=== PATIENT | male | born 1965 | race Caucasian/White ===

== ENCOUNTER 2016-11-30 19:44 | Emergency (ER) | payer BC, OTHER ==
[2016-11-30 19:50] VITALS: BP 165/100
[2016-11-30] MEDS ORDERED: Ondansetron 4 MG/2 ML SDV IVPUSH ONE (19:55)
--- NOTE | 2016-11-30 20:05 | EDM.PDOC ---
ED HPI GENERAL MEDICAL PROBLEM - General Chief Complaint: General Stated Complaint: [facility] Time Seen by Provider: 11/30/16 19:51 Source of Information: Reports: Patient, Family History Limitations: Reports: No Limitations - History of Present Illness INITIAL COMMENTS - FREE TEXT/NARRATIVE: This is a 50-year-old male. He spent the day over at [employer] and had a great lunch and prior to driving home about one hour ago he had ice cream. He was driving past the consent and [place] when he felt weird and the environment began to spin he pulled over to the side of the road and stopped driving. He became diaphoretic and had nausea and vomiting area they drove back to [place] to the ambulance and the aunt wants brings him to the ER. When he arrives his eyes are closed he is nausea and vomiting and he is diaphoretic. He did not have any chest pain during these episodes. He did complain of his neck felt, stiff and sore but no jaw pain. A blood sugar by the ambulance crew showed a glucose of 50. His blood pressure was 170/105. He states that during this time if you would open up his eyes the room and the environment would spin rapidly making him more nauseated. His blood sugar in the ER was 126. He has no history of atherosclerotic heart disease but he has a large family history of it. He denies being short of breath. He's had no headache. He does have tinnitus but this is long-term and there's been no recent increase of his hearing loss or the tinnitus. During this time he was not ambulatory he had no numbness and no decreased function of his extremities. He's had no recent illnesses no colds no cough no congestion. - Related Data Allergies Allergy/AdvReac Type Severity Reaction Status Date / Time No Known Allergies Allergy Verified 11/30/16 19:51 Home Meds: Home Meds Aspirin 81 mg PO DAILY 11/30/16 [History] Lisinopril 10 mg PO DAILY 11/30/16 [History] Meclizine [Antivert] 25 mg PO Q6H PRN #20 tablet 11/30/16 [Rx] Ondansetron [Zofran ODT] 4 mg PO Q6H PRN #20 tab.dis 11/30/16 [Rx] Simvastatin [Zocor] 10 mg PO DAILY 11/30/16 [History] ED ROS GENERAL - Review of Systems Review Of Systems: See Below Constitutional: Reports: Diaphoresis. Denies: Fever, Chills HEENT: Reports: No Symptoms Respiratory: Denies: Shortness of Breath, Wheezing, Cough Cardiovascular: Denies: Chest Pain Endocrine: Reports: No Symptoms GI/Abdominal: Reports: Nausea, Vomiting. Denies: Abdominal Pain : Reports: No Symptoms Musculoskeletal: Reports: Neck Pain Skin: Reports: No Symptoms Neurological: Reports: Dizziness, Difficulty Walking. Denies: Confusion, Headache, Numbness, Paresthesia, Seizure, Trouble Speaking, Change in Speech Psychiatric: Reports: No Symptoms Hematologic/Lymphatic: Reports: No Symptoms ED EXAM, GENERAL - Physical Exam Exam: See Below Exam Limited By: No Limitations General Appearance: Alert, WD/WN, Moderate Distress Eye Exam: Bilateral Eye: Nystagmus (Noted were a little nystagmus when he would open his eyes) Ears: Normal External Exam, Normal Canal, Normal TMs Nose: Normal Inspection Throat/Mouth: Normal Inspection, Normal Lips, Normal Voice, No Airway Compromise Head: Normocephalic Neck: Supple, Non-Tender. No: Carotid Bruit Respiratory/Chest: No Respiratory Distress, Lungs Clear, Normal Breath Sounds Cardiovascular: Regular Rate, Rhythm, No Murmur GI/Abdominal: Soft, Non-Tender. No: Guarding, Rigid, Rebound, Tender Back Exam: Full Range of Motion Extremities: Normal Inspection, Normal Range of Motion, No Pedal Edema Neurological: Alert, Oriented, Normal Cognition, No Motor/Sensory Deficits Psychiatric: Normal Affect, Normal Mood Skin Exam: Diaphoretic EKG INTERPRETATION EKG Date: 11/30/16 Time: 19:44 Rhythm: NSR Rate (beats/min): 85 P-wave: present QRS: normal ST-T: normal QT: normal EKG Interpretation Comments: Normal sinus rhythm, no acute ST or T wave changes, no ischemia noted. Course - Vital Signs Last Recorded V/S: Last Vital Signs Temp 92.7 F L 11/30/16 19:46 Pulse 83 11/30/16 19:46 Resp 18 11/30/16 19:46 BP 165/100 H 11/30/16 19:46 Pulse Ox 96 11/30/16 19:46 - Orders/Labs/Meds Orders: Active Orders 24 hr Category Date Time Status EKG 12 Lead [EKG Documentation Completion] [RC] STAT Care 11/30/16 19:56 Active Chest 2V [CR] Stat Exams 11/30/16 19:53 Taken Labs: Laboratory Tests 11/30/16 11/30/16 Range/Units 19:45 19:45 WBC 9.40 H (4.23-9.07) K/mm3 RBC 5.18 (4.63-6.08) M/mm3 Hgb 16.3 (13.7-17.5) gm/L Hct 47.0 (40.1-51.0) % MCV 90.7 (79.0-92.2) fl MCH 31.5 (25.7-32.2) pg MCHC 34.7 (32.2-35.5) g/dl RDW Std Deviation 42.7 (35.1-43.9) fL Plt Count 301 (163-337) K/mm3 MPV 9.7 (9.4-12.3) fl Neut % (Auto) 45.2 (34.0-67.9) % Lymph % (Auto) 41.6 (21.8-53.1) % [place] % (Auto) 9.7 (5.3-12.2) % Eos % (Auto) 2.4 (0.8-7.0) Baso % (Auto) 1.0 (0.1-1.2) % Neut # (Auto) 4.25 (1.78-5.38) K/mm3 Lymph # (Auto) 3.91 H (1.32-3.57) K/mm3 [place] # (Auto) 0.91 H (0.30-0.82) K/mm3 Eos # (Auto) 0.23 (0.04-0.54) K/mm3 Baso # (Auto) 0.09 H (0.01-0.08) K/mm3 Sodium 143 (136-145) mEq/L Potassium 3.9 (3.5-5.1) mEq/L Chloride 105 (98-107) mEq/L Carbon Dioxide 26 (21-32) mEq/L Anion Gap 15.9 H (5-15) BUN 16 (7-18) mg/dL Creatinine 1.2 (0.7-1.3) mg/dL Est Cr Clr Drug Dosing 79.94 mL/min Estimated GFR (MDRD) > 60 (>60) mL/min BUN/Creatinine Ratio 13.3 L (14-18) Glucose 151 H (74-106) mg/dL Calcium 8.5 (8.5-10.1) mg/dL Total Bilirubin 0.4 (0.2-1.0) mg/dL AST 32 (15-37) U/L ALT 55 (16-63) U/L Alkaline Phosphatase 96 (46-116) U/L Troponin I < 0.017 (0.00-0.056) ng/mL Total Protein 7.6 (6.4-8.2) g/dl Albumin 3.8 (3.4-5.0) g/dl Globulin 3.8 gm/dL Albumin/Globulin Ratio 1.0 (1-2) Meds: Medications Discontinued Medications Generic Name Dose Route Start Last Admin Trade Name Freq PRN Reason Stop Dose Admin Diazepam 2.5 mg 11/30/16 19:52 11/30/16 20:01 Valium IVPUSH 11/30/16 19:53 2.5 mg ONETIME ONE Administration Diazepam 2.5 mg 11/30/16 21:04 11/30/16 21:31 Valium IVPUSH 11/30/16 21:05 2.5 mg ONETIME ONE Administration Ondansetron HCl 4 mg 11/30/16 19:55 11/30/16 19:57 Zofran IVPUSH 11/30/16 19:56 4 mg ONETIME ONE Administration - Radiology Interpretation Free Text/Narrative:: Chest x-ray did not show any acute infiltrates or changes - Re-Assessments/Exams Free Text/Narrative Re-Assessment/Exam: 11/30/16 21:03 Patient is feeling better he's not able to reproduce his dizziness or vertigo by moving his head from side to side quickly. I rechecked she does not have any carotid bruits I don't hear a faint posterior neck as far as bruits as well. He is warm and dry resting comfortably in bed. Does have a feeling of mild ickyness in his stomach but no nausea and no vomiting. 11/30/16 21:42 Spoke to the patient and the family regarding the x-ray results and the lab results. I will be sending him home on some meclizine and some Zofran and he is to rest and sleep as much as possible drink lots of fluids over the next 48 hours and followup with his family doctor on Friday for recheck. He is to return to the ER the symptoms worsen. 11/30/16 21:51 The patient is feeling back to normal and her vertigo seems to have resolved. He does note that when he turns his head he'll get a sense of vertigo but no severe vertigo. Departure - Departure Time of Disposition: 21:50 Disposition: Home, Self-Care 01 Condition: good Clinical Impression: Benign positional vertigo Qualifiers: Laterality: right Qualified Code(s): H81.11 - Benign paroxysmal vertigo, right ear Nausea & vomiting Qualifiers: Vomiting type: unspecified Vomiting Intractability: non-intractable Qualified Code(s): R11.2 - Nausea with vomiting, unspecified - Discharge Information Prescriptions: Meclizine [Antivert] 25 mg PO Q6H PRN #20 tablet PRN Reason: Dizziness Ondansetron [Zofran ODT] 4 mg PO Q6H PRN #20 tab.dis PRN Reason: Nausea Referrals: Samuel Holder MD [Primary Care Provider] - Forms: ED Department Discharge Additional Instructions: Over the next 48 hours take the meclizine fairly faithfully and the Zofran as needed, you need to drink lots of fluids avoid caffeine, rest and sleep as much as possible, but very careful about changes in position of your head because that will cause the dizziness or vertigo, if there's marked worsening of your symptoms any need return to the ER over the weekend, followup with your family doctor next week for recheck - My Orders Last 24 Hours: My Active Orders 11/30/16 19:53 Chest 2V [CR] Stat 11/30/16 19:56 EKG 12 Lead [EKG Documentation Completion] [RC] STAT - Assessment/Plan Last 24 Hours: My Active Orders 11/30/16 19:53 Chest 2V [CR] Stat 11/30/16 19:56 EKG 12 Lead [EKG Documentation Completion] [RC] STAT
--- NOTE | 2016-11-30 20:39 | CT ---
Head CT Technique: Multiple axial sections through the brain were obtained. Intravenous contrast was not utilized. Comparison: No previous intracranial imaging is available. Findings: Ventricles along the basal cisterns and sulci over the convexities are mildly prominent. No abnormal parenchymal densities are seen. No evidence of intracranial hemorrhage. No midline shift or mass effect is seen. Slight basal ganglia calcification is incidentally noted. Visualized mastoid sinuses and middle ear cavities are clear. No acute calvarial abnormality is seen. Impression: 1. Slight generalized atrophy. 2. No acute intracranial abnormality is identified on noncontrast head CT study. Diagnostic code #2
[2016-11-30] MEDS ORDERED: Ondansetron 4 MG Tab.DIS ONE (22:13)
--- NOTE | 2016-12-02 08:03 | CR ---
Chest: Two views of the chest were obtained. Comparison: No previous chest imaging is available. Heart size and mediastinum are within normal limits. Lungs are clear. Bony structures show minimal scoliosis. Impression: 1. Nothing acute is identified on two-view chest x-ray. Diagnostic code #1
== END 2016-11-30 22:13 | disposition home or self-care (01) ==
LOC: JD.ED 19:44
DX: H81.11 Benign paroxysmal vertigo, right ear (principal); R11.2 Nausea with vomiting, unspecified; Z79.82 Long term (current) use of aspirin; Z79.899 Other long term (current) drug therapy
CPT/HCPCS: 36415; 70450; 71020; 80053; 84484; 85025; 93005; 96374; 96375; 96376; 99285; A9270; J2405; J3360; 82962; 99284

== ENCOUNTER 2018-09-26 03:14 | Emergency (ER) | payer OTHER ==
[2018-09-26 03:40] VITALS: BP 157/97
[2018-09-26] MEDS ORDERED: Orphenadrine 100 MG Tab.ER PO STA (03:47)
--- NOTE | 2018-09-26 03:53 | EDM.PDOC ---
ED HPI GENERAL MEDICAL PROBLEM - General Chief Complaint: Chest Pain Stated Complaint: CHEST PAIN Time Seen by Provider: 09/26/18 03:30 Source of Information: Reports: Patient, Family (), RN Notes Reviewed History Limitations: Reports: No Limitations - History of Present Illness INITIAL COMMENTS - FREE TEXT/NARRATIVE: The patient states that he was woken from sleep around 01:00 this morning with sudden onset left chest pain - the patient points with one finger to his 3rd intercostal space, midclavicular line - as well as to his left upper back pain. The pain is crampy in character. It is constant. It is made worse if he is supine, better when walking. No associated nausea, diaphoresis, dyspnea, or sense of impending doom. The patient also reports a tingling sensation felt to the upper portion of his left arm, that has since resolved. The patient reports similar symptoms about 3 weeks ago. He states that he saw his chiropractor, had an adjustment, and the pain resolved. The patient's PCP is Dr. Holder. The patient has an appointment to see Dr. Holder this coming 09/28/2018. Mid-Sternal Chest Pain Score (Numeric/FACES): 6 - Related Data Allergies Allergy/AdvReac Type Severity Reaction Status Date / Time No Known Allergies Allergy Verified 09/26/18 03:33 Home Meds: Home Meds Aspirin 81 mg PO DAILY 11/30/16 [History] Lisinopril 10 mg PO DAILY 11/30/16 [History] Simvastatin [Zocor] 10 mg PO DAILY 11/30/16 [History] Hydrochlorothiazide [Microzide] 12.5 mg PO DAILY 09/26/18 [History] Orphenadrine [Norflex] 1 tab PO Q12H PRN #10 tab.er 09/26/18 [Rx] Past Medical History Cardiovascular History: Reports: High Cholesterol, Hypertension Gastrointestinal History: Reports: Colon Polyp Musculoskeletal History: Reports: Fracture (left cheeck and mandible, left ankle ) Endocrine/Metabolic History: Reports: Obesity/BMI 30+ Hematologic History: Reports: Hemochromatosis Social & Family History - Tobacco Use Smoking Status *Q: Never Smoker - Caffeine Use Caffeine Use: Reports: None - Alcohol Use Alcohol Use History: Yes Alcohol Use Frequency: Socially - Recreational Drug Use Recreational Drug Use: No - Living Situation & Occupation Living situation: Reports: , with Spouse Occupation: Employed ([employer]) ED ROS GENERAL - Review of Systems Review Of Systems: ROS reveals no pertinent complaints other than HPI. ED EXAM, GENERAL - Physical Exam Exam: See Below Exam Limited By: No Limitations General Appearance: Alert, WD/WN, No Apparent Distress Eye Exam: Bilateral Eye: EOMI, Normal Inspection Ears: Normal External Exam, Hearing Grossly Normal Nose: Normal Inspection Throat/Mouth: Normal Inspection, Normal Lips, Normal Voice, No Airway Compromise Head: Atraumatic, Normocephalic Neck: Normal Inspection, Full Range of Motion Respiratory/Chest: No Respiratory Distress, Lungs Clear, Normal Breath Sounds, No Accessory Muscle Use, Other (Reproducible tenderness to palpation of the 3rd intercostal space, midclavicular line. Nontender elsewhere.) Cardiovascular: Normal Peripheral Pulses, Regular Rate, Rhythm, No Edema, No Gallop, No JVD, No Murmur, No Rub Peripheral Pulses: 4+: Radial (L), Radial (R) GI/Abdominal: Normal Bowel Sounds, Soft, Non-Tender, No Organomegaly, No Distention, No Abnormal Bruit, No Mass, Other (Obese) (Male) Exam: Deferred Rectal (Males) Exam: Deferred Back Exam: Full Range of Motion, Muscle Spasm (Reproducible tenderness to palpation of the left parascapular muscle, just medial to the mid-scapula) Extremities: Normal Inspection, Normal Range of Motion, No Pedal Edema, Normal Capillary Refill Neurological: Alert, Oriented, Normal Cognition, No Motor/Sensory Deficits Psychiatric: Normal Affect Skin Exam: Warm, Dry, Intact, Normal Color, No Rash EKG INTERPRETATION EKG Date: 09/26/18 Time: 03:25 Rhythm: NSR Rate (Beats/Min): 70 [place]: Normal P-Wave: Present (1 AVB) QRS: Normal (Late transition. RVH.) ST-T: Normal QT: Normal Comparison: No Change (11/30/2016) Course - Vital Signs Last Recorded V/S: Last Vital Signs Temp 36.8 C 09/26/18 03:35 Pulse 70 09/26/18 03:35 Resp 18 09/26/18 03:35 BP 157/97 H 09/26/18 03:35 Pulse Ox 100 09/26/18 03:35 - Orders/Labs/Meds Orders: Active Orders 24 hr Category Date Time Status EKG Documentation Completion [RC] STAT Care 09/26/18 03:37 Active - Re-Assessments/Exams Free Text/Narrative Re-Assessment/Exam: 09/26/18 03:48 There is no question but that the patient's left chest and left parascapular pain is musculoskeletal in etiology. I will prescribe Norflex. The patient states that he has his own ibuprofen. He may safely be discharged home with no further workup. Departure - Departure Time of Disposition: 03:48 Disposition: Home, Self-Care 01 Condition: Good Clinical Impression: Muscular chest pain, Muscle strain of left upper back - Discharge Information *PRESCRIPTION DRUG MONITORING PROGRAM REVIEWED*: Not Applicable *COPY OF PRESCRIPTION DRUG MONITORING REPORT IN PATIENT AYAH: Not Applicable Referrals: Samuel Holder MD [Primary Care Provider] - Additional Instructions: You were seen in the emergency room for sudden onset left chest and left scapular pain. Workup in the ER included an ECG, which was essentially normal. Based on your history, physical examination, and ECG, your chest pain and left parascapular pain is musculoskeletal in etiology. You have been started on the muscle relaxant Norflex. A prescription for Norflex has been sent to the [facility], located just south and across the [address] from [facility]. Take one tablet of Norflex every 12 hours, starting this evening, 09/26/2018, as prescribed. In addition to Norflex, you may also take [id number] ibuprofen, 2-3 tablets (400-600 mg) every 8 hours, with food, as needed for discomfort. Follow-up with your PCP, Dr. Holder, at your previously scheduled appointment this coming 09/28/2018. If any other problems, please do not hesitate to return to the ER. - My Orders Last 24 Hours: My Active Orders 09/26/18 03:37 EKG Documentation Completion [RC] STAT - Assessment/Plan Last 24 Hours: My Active Orders 09/26/18 03:37 EKG Documentation Completion [RC] STAT
== END 2018-09-26 04:15 | disposition home or self-care (01) ==
LOC: JD.ED 03:14
DX: S29.012A Strain of muscle and tendon of back wall of thorax, initial encounter (principal); I10 Essential (primary) hypertension; E78.00 Pure hypercholesterolemia, unspecified; Z79.82 Long term (current) use of aspirin; Z79.899 Other long term (current) drug therapy; X58.XXXA Exposure to other specified factors, initial encounter
CPT/HCPCS: 93005; 99284; A9270; 93010

== ENCOUNTER 2020-01-20 09:30 | Day surgery (SDC) | payer OTHER ==
[~2020-01-20 09:30] MED LIST: EPINEPHrine 1 MG/ML 30 ML MDV IRR SCH; Lactated Ringers 1,000 ML IV SCH; Lidocaine 1%/Sod Bicarbonate in NS 8.4% 1 ML Syringe IDERM PRN; Sodium Chloride 0.9% 10 ML Syringe FLUSH PRN
[2020-01-20] MEDS ORDERED: Bupivacaine 0.25% 10 ML SDV ONE ×2 (10:21→11:43)
[2020-01-20] MEDS ORDERED: Midazolam 1 MG/ML 2 ML SDV ONE ×2 (10:44→11:18)
[2020-01-20] MEDS ORDERED: Dexamethasone 4 MG/ML 5 ML MDV ONE ×2 (10:44→12:13)
[2020-01-20] MEDS ORDERED: Ondansetron 4 MG/2 ML SDV ONE ×2 (10:44→11:17)
[2020-01-20] MEDS ORDERED: Ketorolac 30 MG/ML SDV ONE (10:44)
[2020-01-20] MEDS ORDERED: Lactated Ringers 1,000 ML ONE (10:44)
[2020-01-20] MEDS ORDERED: ceFAZolin 1 GM Vial ONE ×2 (10:44→11:45)
[2020-01-20] MEDS ORDERED: Propofol 200 MG/20 ML SDV ONE ×3 (10:44→12:08)
[2020-01-20] MEDS ORDERED: Lidocaine 1% 0 ML ONE (10:44)
[2020-01-20] MEDS ORDERED: fentaNYL 100 MCG/2 ML SDV ONE (10:45)
--- NOTE | 2020-01-20 11:08 | PCM.PREANE ---
Preanesthetic Assessment - Procedure Proposed Procedure: Right Knee video arthroscopy - Anesthesia/Transfusion/Family Hx Anesthesia History: Prior Anesthesia Without Reaction Family History of Anesthesia Reaction: No Transfusion History: No Prior Transfusion(s) - Review of Systems General: No Symptoms Pulmonary: No Symptoms Cardiovascular: No Symptoms Gastrointestinal: No Symptoms Neurological: No Symptoms, Gait Disturbance (with knee injury) Other: Reports: None - Physical Assessment NPO Status Date: 01/20/20 NPO Status Time: 20:00 Vital Signs: Last Vital Signs Temp 36.3 C 01/20/20 10:20 Pulse 70 01/20/20 10:20 Resp 16 01/20/20 10:20 BP 136/93 H 01/20/20 10:20 Pulse Ox 96 01/20/20 10:20 Height: 1.83 m Weight: 117.027 kg ASA Class: 2 Mental Status: Alert & Oriented x3 Airway Class: Mallampati = 2 Dentition: Reports: [place](s), Caries Thyro-Mental Finger Breadths: 2 Mouth Opening Finger Breadths: 3 ROM/Head Extension: Full Lungs: Clear to Auscultation, Normal Respiratory Effort Cardiovascular: Regular Rate, Regular Rhythm - Lab Values: Laboratory Last Values COVID-19 PCR Not detected (NOT DETECT) 01/17/20 09:15 MRSA (PCR) Negative 01/14/20 12:00 - Imaging/EKG Impressions: EKG left atrial abnormality SR nonspecific inferior T wave - Allergies Allergies/Adverse Reactions: Allergies Allergy/AdvReac Type Severity Reaction Status Date / Time No Known Allergies Allergy Verified 01/20/20 10:18 - Blood Blood Available: No Product(s) Available: None - Anesthesia Plan Pre-Op Medication Ordered: None - Acknowledgements Anesthesia Type Planned: General Anesthesia Pt an Appropriate Candidate for the Planned Anesthesia: Yes Alternatives and Risks of Anesthesia Discussed w Pt/Guardian: Yes Pt/Guardian Understands and Agrees with Anesthesia Plan: Yes PreAnesthesia Questionnaire - Past Health History Medical/Surgical History: Denies Medical/Surgical History HEENT History: Reports: Otitis Media, Other (See Below) Other HEENT History: IMPACTED CERUMEN, JAW FRACTURE Cardiovascular History: Reports: High Cholesterol, Hypertension Respiratory History: Reports: None Gastrointestinal History: Reports: Colon Polyp Genitourinary History: Reports: None [employer]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 Musculoskeletal History: Reports: Fracture Neurological History: Reports: None Psychiatric History: Reports: None Endocrine/Metabolic History: Reports: None Hematologic History: Reports: Hemochromatosis, Other (See Below) Other Hematologic History: HEMOCHROMOTISIS, DISORDER OF IRON METABOLISM Immunologic History: Reports: None Oncologic (Cancer) History: Reports: None Dermatologic History: Reports: Other (See Below) Other Dermatologic History: RASH - Infectious Disease History Infectious Disease History: Reports: None - Past Surgical History Head Surgeries/Procedures: Reports: None HEENT Surgical History: Reports: Oral Surgery, Tonsillectomy, Other (See Below) Other HEENT Surgeries/Procedures: FACE AND JAW SURGERY Cardiovascular Surgical History: Reports: None Respiratory Surgical History: Reports: None GI Surgical History: Reports: Colonoscopy Female Surgical History: Reports: None Male Surgical History: Reports: None Endocrine Surgical History: Reports: None Neurological Surgical History: Reports: Other (See Below) Other Neurological Surgeries/Procedures: BACK SURGERY Musculoskeletal Surgical History: Reports: ORIF Other Musculoskeletal Surgeries/Procedures:: LEFT ANKLE ORIF WITH LATER HARDWARE REMOVAL Oncologic Surgical History: Reports: None Dermatological Surgical History: Reports: None - SUBSTANCE USE Smoking Status *Q: Never Smoker Tobacco Use Within Last Twelve Months: No Second Hand Smoke Exposure: No Days Per Week of Alcohol Use: 1 Number of Drinks Per Day: 1 Total Drinks Per Week: 1 Recreational Drug Use History: No - HOME MEDS Home Medications: Home Meds Lisinopril 10 mg PO DAILY 11/30/16 [History] hydroCHLOROthiazide [Microzide] 12.5 mg PO DAILY 09/26/18 [History] Simvastatin 20 mg PO DAILY 01/19/20 [History] Trolamine Salicylate/Aloe Vera [Aspercreme 10%] 1 dose TOP BID 01/19/20 [History] Acetaminophen/HYDROcodone [[place] 325-5 MG] 1 - 2 tab PO Q6H PRN #20 tablet 01/20/20 [Rx] Rivaroxaban [Xarelto] 10 mg PO DAILY #30 tab 01/20/20 [Rx] - CURRENT (IN HOUSE) MEDS Current Meds: Current Medications Epinephrine HCl (Adrenalin) 3 mg IRR ONETIME KATIE Stop: 01/20/20 13:00 Lactated Ringer's (Ringers, Lactated) 1,000 mls @ 125 mls/hr IV ASDIRECTED KATIE Stop: 01/20/20 23:00 Last Admin: 01/20/20 10:17 Dose: 125 mls/hr Documented by: Lidocaine/Sodium Bicarbonate (Buffered Lidocaine 1% In Ns 8.4%) 0.25 ml IDERM ONETIME PRN PRN Reason: Prior to IV Start Stop: 01/20/20 23:00 Last Admin: 01/20/20 10:17 Dose: 0.25 ml Documented by: Sodium Chloride (Saline Flush) 10 ml FLUSH ASDIRECTED PRN PRN Reason: Keep Vein Open Stop: 01/20/20 23:00 Discontinued Medications Bupivacaine HCl (Sensorcaine-Mpf 0.25%) Confirm Administered Dose 20 ml .ROUTE .STK-MED ONE Stop: 01/20/20 10:22 Cefazolin Sodium (Ancef) Confirm Administered Dose 2 gm .ROUTE .STK-MED ONE Stop: 01/20/20 10:45 Dexamethasone (Dexamethasone) Confirm Administered Dose 20 mg .ROUTE .STK-MED ONE Stop: 01/20/20 10:45 Fentanyl (Sublimaze) Confirm Administered Dose 100 mcg .ROUTE .STK-MED ONE Stop: 01/20/20 10:46 Lactated Ringer's (Ringers, Lactated) Confirm Administered Dose 1,000 mls @ as directed .ROUTE .STK-MED ONE Stop: 01/20/20 10:45 Lidocaine HCl (Xylocaine-Mpf 1%) Confirm Administered Dose 4 mls @ as directed .ROUTE .STK-MED ONE Stop: 01/20/20 10:45 Ketorolac Tromethamine (Toradol) Confirm Administered Dose 30 mg .ROUTE .STK-MED ONE Stop: 01/20/20 10:45 Midazolam HCl (Versed 1 Mg/Ml) Confirm Administered Dose 2 mg .ROUTE .STK-MED ONE Stop: 01/20/20 10:45 Ondansetron HCl (Zofran) Confirm Administered Dose 4 mg .ROUTE .STK-MED ONE Stop: 01/20/20 10:45 Propofol (Diprivan 20 Ml) Confirm Administered Dose 400 mg .ROUTE .STK-MED ONE Stop: 01/20/20 10:45
[2020-01-20] MEDS ORDERED: Lidocaine 1% 4 ML ONE (11:18)
[2020-01-20] MEDS ORDERED: fentaNYL 250 MCG/5 ML SDV ONE (11:18)
[2020-01-20] MEDS ORDERED: Ondansetron 4 MG/2 ML SDV IVPUSH PRN (12:34)
[2020-01-20] MEDS ORDERED: fentaNYL 100 MCG/2 ML SDV IVPUSH PRN (12:34)
[2020-01-20] MEDS ORDERED: HYDROmorphone 0.5 MG/0.5 ML Syringe IVPUSH PRN (12:34)
--- NOTE | 2020-01-20 12:36 | PCM.POSTAN ---
POST ANESTHESIA ASSESSMENT - MENTAL STATUS Mental Status: Alert, Oriented - VITAL SIGNS Vital Signs: Last Vital Signs Temp 36.3 C 01/20/20 10:20 Pulse 70 01/20/20 10:20 Resp 16 01/20/20 10:20 BP 136/93 H 01/20/20 10:20 Pulse Ox 96 01/20/20 10:20 1226 88 10 97% 98.1F - RESPIRATORY Respiratory Status: Respiratory Rate WNL, Airway Patent, O2 Saturation Stable, Supplemental Oxygen - CARDIOVASCULAR CV Status: Pulse Rate WNL, Elevated Blood Pressure - GASTROINTESTINAL GI Status: No Symptoms - PAIN Pain Score: 0 - POST OP HYDRATION Hydration Status: Adequate & Stable
[2020-01-20] MEDS ORDERED: Labetalol 100 MG/20 ML MDV ONE (12:41)
[2020-01-20] MEDS: Labetalol 100 MG/20 ML MDV IVPUSH PRN ×2 (13:17→13:31)
[2020-01-20] MEDS ORDERED: hydrALAZINE 20 MG/ML SDV IVPUSH ONE (13:34)
--- NOTE | 2020-01-20 13:41 | PCM.POSTAN ---
POST ANESTHESIA ASSESSMENT - MENTAL STATUS Mental Status: Alert, Oriented - VITAL SIGNS Vital Signs: Last Vital Signs Temp 36.3 C 01/20/20 10:20 Pulse 70 01/20/20 10:20 Resp 12 01/20/20 13:30 BP 143/112 H 01/20/20 13:30 Pulse Ox 96 01/20/20 13:37 - RESPIRATORY Respiratory Status: Respiratory Rate WNL, Airway Patent, O2 Saturation Stable, Supplemental Oxygen - CARDIOVASCULAR CV Status: Pulse Rate WNL, Elevated Blood Pressure - GASTROINTESTINAL GI Status: No Symptoms - POST OP HYDRATION Hydration Status: Adequate & Stable
--- NOTE | 2020-01-20 13:43 | PCM48HPAN ---
Post Anesthesia Note - EVALUATION WITHIN 48HRS OF ANESTHETIC Vital Signs in Normal Range: Yes Patient Participated in Evaluation: Yes Respiratory Function Stable: Yes Airway Patent: Yes Cardiovascular Function Stable: Yes Hydration Status Stable: Yes Pain Control Satisfactory: Yes Nausea and Vomiting Control Satisfactory: Yes Mental Status Recovered: Yes Vital Signs: Last Vital Signs Temp 36.3 C 01/20/20 10:20 Pulse 69 01/20/20 10:20 Resp 12 01/20/20 13:30 BP 149/96 H 01/20/20 13:30 Pulse Ox 96 01/20/20 13:37
[2020-01-20 14:32] VITALS: BP 144/103; PULSE 64
--- NOTE | 2020-01-26 15:47 | PCM.OPNOTE ---
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
--- NOTE | 2020-01-26 16:28 | OR ---
DATE OF OPERATION: 01/20/2020 SURGEON: Curtis Godoy MD OPERATION PERFORMED: Right knee video arthroscopy with partial lateral and medial meniscectomy. PREOPERATIVE DIAGNOSIS: Right knee medial meniscus tear. POSTOPERATIVE DIAGNOSIS: Right knee medial and lateral meniscus tear with chondromalacia of the lateral compartment. ANESTHESIA: General LMA with local. ANESTHESIA PROVIDER: Luciana Gannon. SHIPPING TRACK SUPERVISOR: Destiny Sanchez PA-C ESTIMATED BLOOD LOSS: Less than 5 mL. COMPLICATIONS: None. CONDITION: Stable. DESCRIPTION OF PROCEDURE: The patient was identified in the preoperative holding area. Proper site was marked and identified by the surgeon. The patient was taken back to the operating theater, where after adequate anesthesia, the patient's left lower extremity was placed in a well-leg ahumada and right lower extremity had a nonsterile tourniquet applied. It was then placed in a C-clamp ahumada. Foot of the bed was then lowered. Right lower extremity was then sterilely prepped and draped in the usual sterile fashion. OR-wide time-out was performed. The patient received 2 g of IV Ancef. Right lower extremity was exsanguinated. Tourniquet was insufflated to 250 mmHg. Standard anterolateral portal incision was made. Scope trocar was introduced. The patient had grade 1/2 chondromalacia of patella. He had minor amount of synovial overgrowth. Attention was turned to the medial compartment. Anteromedial portal was made with the aid of a spinal needle and partial medial meniscectomy was performed of the posterior third, roughly only 10% to 20% of the posterior horn of the medial meniscus back to a stable rim. The patient had minimal grade 1 chondromalacia of the medial compartment. ACL appeared to be chronically stretched on the notch. Lateral compartment showed significant chondromalacia changes of grade 2/3 throughout with degenerative tear of the lateral meniscus. Partial lateral meniscectomy was then performed back to a stable rim, but it was roughly 40% to 50% of the lateral meniscus and all that was degenerative. Attention was then turned to the gutter, making sure there were no loose foreign bodies. Excess saline was drained from the knee. 3-0 nylon suture was used for closure of the skin. The patient had a sterile soft dressing and sent to PACU in stable condition. MMODAL /[id number]
== END 2020-01-20 14:29 | disposition home or self-care (01) ==
LOC: JD.SDS 09:30
PROVIDERS: ATTEND Orthopaedic Surgery
DX: M23.300 Other meniscus derangements, unspecified lateral meniscus, right knee (principal); M23.321 Other meniscus derangements, posterior horn of medial meniscus, right knee; M94.261 Chondromalacia, right knee; M25.861 Other specified joint disorders, right knee; E78.2 Mixed hyperlipidemia; E78.00 Pure hypercholesterolemia, unspecified; I10 Essential (primary) hypertension; Z11.59 Encounter for screening for other viral diseases; Z79.899 Other long term (current) drug therapy
CPT/HCPCS: 29880; 87635; 87641; J0171; J0360; J0690; J1100; J1885; J2001; J2250; J2704; J3010; J3490; J7120; 01400; J2405; U0002

== ENCOUNTER 2020-04-15 08:30 | Emergency (ER) | payer OTHER ==
--- NOTE | 2020-04-15 09:43 | EDM.PDOC ---
ED HPI GENERAL MEDICAL PROBLEM - General Chief Complaint: Respiratory Problem Stated Complaint: COVID + DIFFICULTY BREATHING Time Seen by Provider: 04/15/20 08:52 Source of Information: Reports: Patient, RN Notes Reviewed - History of Present Illness INITIAL COMMENTS - FREE TEXT/NARRATIVE: 54 yr old male with onset of fever, chills, Mendieta, Myalgias about a week ago. He started coughing yesterday and continue to have cough and feel quite rotton today. Cough is dry, non productive. Hx Htn. Headache Pain Score (Numeric/FACES): 6 - Related Data Allergies Allergy/AdvReac Type Severity Reaction Status Date / Time No Known Allergies Allergy Verified 04/15/20 08:41 Home Meds: Home Meds Lisinopril 10 mg PO DAILY 11/30/16 [History] hydroCHLOROthiazide [Microzide] 12.5 mg PO DAILY 09/26/18 [History] Simvastatin 20 mg PO DAILY 01/19/20 [History] Trolamine Salicylate/Aloe Vera [Aspercreme 10%] 1 dose TOP BID 01/19/20 [History] Acetaminophen/HYDROcodone [[place]oure 325-5 MG] 1 - 2 tab PO Q6H PRN #20 tablet 01/20/20 [Rx] Rivaroxaban [Xarelto] 10 mg PO DAILY #30 tab 01/20/20 [Rx] Hydrocodone/Acetaminophen [[place] 5-325 Tablet] 1 each PO Q6HR PRN #20 tablet 04/15/20 [Rx] Past Medical History - Past Health History Medical/Surgical History: Denies Medical/Surgical History HEENT History: Reports: Otitis Media, Other (See Below) Other HEENT History: IMPACTED CERUMEN, JAW FRACTURE Cardiovascular History: Reports: High Cholesterol, Hypertension Respiratory History: Reports: None Gastrointestinal History: Reports: Colon Polyp Genitourinary History: Reports: None 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 Musculoskeletal History: Reports: Fracture Neurological History: Reports: Vertigo Psychiatric History: Reports: None Endocrine/Metabolic History: Reports: Obesity/BMI 30+ Hematologic History: Reports: Hemochromatosis Other Hematologic History: HEMOCHROMOTISIS, DISORDER OF IRON METABOLISM Immunologic History: Reports: None Oncologic (Cancer) History: Reports: None Dermatologic History: Reports: Other (See Below) Other Dermatologic History: RASH - Infectious Disease History Infectious Disease History: Reports: None - Past Surgical History Head Surgeries/Procedures: Reports: None HEENT Surgical History: Reports: Oral Surgery, Tonsillectomy, Other (See Below) Other HEENT Surgeries/Procedures: FACE AND JAW SURGERY Cardiovascular Surgical History: Reports: None Respiratory Surgical History: Reports: None GI Surgical History: Reports: Colonoscopy Male Surgical History: Reports: None Musculoskeletal Surgical History: Reports: ORIF Other Musculoskeletal Surgeries/Procedures:: LEFT ANKLE ORIF WITH LATER HARDWARE REMOVAL Oncologic Surgical History: Reports: None Dermatological Surgical History: Reports: None Social & Family History - Tobacco Use Tobacco Use Status *Q: Never Tobacco User Second Hand Smoke Exposure: No - Caffeine Use Caffeine Use: Reports: None - Recreational Drug Use Recreational Drug Use: No - Living Situation & Occupation Living situation: Reports: , with Spouse Occupation: Employed ([employer]) ED ROS GENERAL - Review of Systems Review Of Systems: See Below Constitutional: Reports: Fever, Chills. Denies: Diaphoresis HEENT: Reports: Rhinitis. Denies: Throat Pain Respiratory: Reports: Cough. Denies: Shortness of Breath, Sputum Cardiovascular: Denies: Chest Pain GI/Abdominal: Denies: Abdominal Pain, Vomiting Musculoskeletal: Reports: Other (Generalized achiness) Skin: Denies: Rash Neurological: Reports: Headache. Denies: Trouble Speaking, Difficulty Walking ED EXAM, GENERAL - Physical Exam Exam: See Below General Appearance: Alert, Mild Distress Head: Atraumatic Neck: Supple Respiratory/Chest: No Respiratory Distress Extremities: Normal Inspection Neurological: Alert, Oriented, No Motor/Sensory Deficits Skin Exam: Warm, Dry, Normal Color Course - Vital Signs Last Recorded V/S: Last Vital Signs Temp 98.2 F 04/15/20 08:39 Pulse 100 04/15/20 10:06 Resp 18 04/15/20 10:06 BP 134/89 04/15/20 10:06 Pulse Ox 93 L 04/15/20 10:06 - Orders/Labs/Meds Orders: Active Orders 24 hr Category Date Time Status Chest 1V Frontal [CR] Stat Exams 04/15/20 08:52 Taken CORONAVIRUS COVID-19 PCR PHL Stat Lab 04/15/20 10:05 Ordered - Re-Assessments/Exams Free Text/Narrative Re-Assessment/Exam: 04/15/20 10:24 CXR shows very slight peripheral ground glass opacity L lung suggestive for mild covid pneumonia. His sats are running in the mid 90's. afebrile at time of discharge. Strong return precautions given oral and written. Departure - Departure Time of Disposition: 09:38 Disposition: Home, Self-Care 01 Condition: Fair Clinical Impression: Suspected COVID-19 virus infection, Pneumonia due to COVID-19 virus - Discharge Information Prescriptions: Hydrocodone/Acetaminophen [Lamoure 5-325 Tablet] 1 each PO Q6HR PRN #20 tablet PRN Reason: Pain Instructions: COVID-19 Frequently Asked Questions, Prevent the Spread of COVID- 19 if You Are Sick - [facility] Referrals: Samuel Holder MD [Primary Care Provider] - Forms: ED Department Discharge Additional Instructions: Your symptoms are strongly suggestive and compatable for covid illness. Continue to isolate. The results of the covid screen will be called to you when available, usually 2 to 3 days. Drink plenty of fluids to maintain hydration. Tylenol q 6 hr for mild to moderate discomfort. Hydrocodone for severe Mendieta or other discomfort. Prescription has been sent to [facility]. Do not take tylenol and hydrocodone at the same time. Your CXR today does show very mild pneuonia L lung. If it gets to where it is becomes very difficult to breathe like an asthma attack return to ED and also otherwise as needed. Sepsis Event Note (ED) - Evaluation Sepsis Screening Result: No Definite Risk - Focused Exam Vital Signs: Vital Signs Temp Pulse Resp BP Pulse Ox 04/15/20 10:06 100 18 134/89 93 L 04/15/20 08:39 98.2 F 106 H 23 H 137/91 H 95 - My Orders Last 24 Hours: My Active Orders 04/15/20 08:52 Chest 1V Frontal [CR] Stat 04/15/20 10:05 CORONAVIRUS COVID-19 PCR PHL Stat - Assessment/Plan Last 24 Hours: My Active Orders 04/15/20 08:52 Chest 1V Frontal [CR] Stat 04/15/20 10:05 CORONAVIRUS COVID-19 PCR PHL Stat
[2020-04-15 10:08] VITALS: BP 134/89; PULSE 100
== END 2020-04-15 09:50 | disposition home or self-care (01) ==
LOC: JD.ED 08:30
DX: U07.1 COVID-19 (principal); J12.89 Other viral pneumonia; E78.00 Pure hypercholesterolemia, unspecified; I10 Essential (primary) hypertension; E66.9 Obesity, unspecified; Z79.899 Other long term (current) drug therapy; Z68.35 Body mass index [BMI] 35.0-35.9, adult; Z90.89 Acquired absence of other organs
CPT/HCPCS: 71045; 99283; 99284-25; U0002

== ENCOUNTER 2020-04-17 13:34 | Emergency (ER) | payer OTHER ==
[2020-04-17 14:00] VITALS: BP 138/98; PULSE 86
--- NOTE | 2020-04-17 14:14 | EDM.PDOC ---
ED HPI GENERAL MEDICAL PROBLEM - General Chief Complaint: Respiratory Problem Stated Complaint: COVID + DIFFICULTY BREATHING Time Seen by Provider: 04/17/20 14:04 - History of Present Illness INITIAL COMMENTS - FREE TEXT/NARRATIVE: 54-year-old male presents the emergency room with known Covid. The patient has been symptomatic for the last 9 days.. His headache is getting better his body aches are getting better he has some persistent chest tightness. This is not getting better. The patient was seen by his regular physician Dr. Holder prior to coming in. The patient has a home pulse ox that is measured 82 to 88% at times. At other times he is into the 90s. He was not hypoxic in the clinic. He had a chest x-ray that looked like bilateral pneumonia most consistent with Covid. His regular physician started him on dexamethasone 6 mg daily for 10 days cefuroxime 500 mg twice a day and a Z-Drew. [place] and was heading home when a family member recommended he go back in because his O2 saturation was too low. Generalized Pain Score (Numeric/FACES): 4 - Related Data Allergies Allergy/AdvReac Type Severity Reaction Status Date / Time No Known Allergies Allergy Verified 04/17/20 14:05 Home Meds: Home Meds Lisinopril 10 mg PO DAILY 11/30/16 [History] hydroCHLOROthiazide [Microzide] 12.5 mg PO DAILY 09/26/18 [History] Simvastatin 20 mg PO DAILY 01/19/20 [History] Trolamine Salicylate/Aloe Vera [Aspercreme 10%] 1 dose TOP BID 01/19/20 [History] Rivaroxaban [Xarelto] 10 mg PO DAILY #30 tab 01/20/20 [Rx] Hydrocodone/Acetaminophen [[place] 5-325 Tablet] 1 each PO Q6HR PRN #20 tablet 04/15/20 [Rx] Past Medical History - Past Health History Medical/Surgical History: Denies Medical/Surgical History HEENT History: Reports: Otitis Media, Other (See Below) Other HEENT History: IMPACTED CERUMEN, JAW FRACTURE Cardiovascular History: Reports: High Cholesterol, Hypertension Respiratory History: Reports: None Gastrointestinal History: Reports: Colon Polyp Genitourinary History: Reports: None 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 Musculoskeletal History: Reports: Fracture Neurological History: Reports: Vertigo Psychiatric History: Reports: None Endocrine/Metabolic History: Reports: Obesity/BMI 30+ Hematologic History: Reports: Hemochromatosis Other Hematologic History: HEMOCHROMOTISIS, DISORDER OF IRON METABOLISM Immunologic History: Reports: None Oncologic (Cancer) History: Reports: None Dermatologic History: Reports: Other (See Below) Other Dermatologic History: RASH - Infectious Disease History Infectious Disease History: Reports: None - Past Surgical History Head Surgeries/Procedures: Reports: None HEENT Surgical History: Reports: Oral Surgery, Tonsillectomy, Other (See Below) Other HEENT Surgeries/Procedures: FACE AND JAW SURGERY Cardiovascular Surgical History: Reports: None Respiratory Surgical History: Reports: None GI Surgical History: Reports: Colonoscopy Male Surgical History: Reports: None Musculoskeletal Surgical History: Reports: ORIF Other Musculoskeletal Surgeries/Procedures:: LEFT ANKLE ORIF WITH LATER HARDWARE REMOVAL Oncologic Surgical History: Reports: None Dermatological Surgical History: Reports: None Social & Family History - Caffeine Use Caffeine Use: Reports: None - Living Situation & Occupation Living situation: Reports: , with Spouse Occupation: Employed ([employer]) ED ROS GENERAL - Review of Systems Review Of Systems: See Below Constitutional: Reports: No Symptoms HEENT: Reports: Rhinitis, Other (Sore throat and congestion much better) Respiratory: Reports: Cough, Other (He has some chest tightness that is not improving). Denies: Shortness of Breath, Sputum Cardiovascular: Reports: No Symptoms Endocrine: Reports: No Symptoms GI/Abdominal: Reports: No Symptoms : Reports: No Symptoms Musculoskeletal: Reports: No Symptoms Skin: Reports: No Symptoms Neurological: Reports: No Symptoms ED EXAM, GENERAL - Physical Exam Exam: See Below Exam Limited By: No Limitations General Appearance: Alert, No Apparent Distress, Other (He has an obvious cough. The patient was able to get his home O2 monitor we compared it with ours where he consistently reads 5% less than ours sometimes more.) Eye Exam: Bilateral Eye: Normal Inspection Ears: Normal External Exam, Normal Canal, Hearing Grossly Normal, Normal TMs Nose: Normal Inspection, Normal Mucosa, No Blood Throat/Mouth: Normal Inspection, Normal Lips, Normal Teeth, Normal Gums, Normal Oropharynx, Normal Voice, No Airway Compromise Head: Atraumatic, Normocephalic Neck: Normal Inspection, Supple, Non-Tender, Full Range of Motion. No: Lymphadenopathy (L), Lymphadenopathy (R) Respiratory/Chest: No Respiratory Distress, Lungs Clear, Normal Breath Sounds Cardiovascular: Regular Rate, Rhythm, No Edema, No Murmur GI/Abdominal: Normal Bowel Sounds, Soft, Non-Tender Course - Vital Signs Last Recorded V/S: Last Vital Signs Temp 36.8 C 04/17/20 13:53 Pulse 86 04/17/20 13:53 Resp 28 H 04/17/20 13:53 BP 138/98 H 04/17/20 13:53 Pulse Ox 94 L 04/17/20 13:53 - Re-Assessments/Exams Free Text/Narrative Re-Assessment/Exam: 04/17/20 15:39 I am not sure labs or x-rays can help be make this patient any better. I discussed this with the patient we will hold off on these investigations at this point the medications he was started on are certainly reasonable. Finding the errors in his home O2 monitor can alleviate a lot of the concerns he is experiencing. The patient would like to be discharged. The patient is staying in [facility] and agrees to return with any questions problems or worsening symptoms. Departure - Departure Time of Disposition: 15:41 Disposition: Home, Self-Care 01 Clinical Impression: Pneumonia due to COVID-19 virus - Discharge Information Referrals: Samuel Holder MD [Primary Care Provider] - Forms: ED Department Discharge Additional Instructions: Return to the emergency room with any questions problems or worsening symptoms. Take your medications as prescribed by your regular physician. Use your home O2 monitor but add on at least 5 percentage points to each reading and gives you. Get plenty of rest. Follow up with your regular physician as directed. If you continue to improve you probably do not need follow-up. Self-isolation for 2 weeks. Sepsis Event Note (ED) - Evaluation Sepsis Screening Result: Possible Sepsis Risk - Focused Exam Vital Signs: Vital Signs Temp Pulse Resp BP Pulse Ox 04/17/20 13:53 36.8 C 86 28 H 138/98 H 94 L
== END 2020-04-17 15:50 | disposition home or self-care (01) ==
LOC: JD.ED 13:34
DX: U07.1 COVID-19 (principal); J12.89 Other viral pneumonia; R05 Cough; E78.00 Pure hypercholesterolemia, unspecified; I10 Essential (primary) hypertension; E66.9 Obesity, unspecified; Z79.899 Other long term (current) drug therapy
CPT/HCPCS: 99282; 99284

== ENCOUNTER 2023-02-24 10:28 | Day surgery (SDC) | payer OTHER ==
[~2023-02-24 10:28] MED LIST changes: +Acetaminophen 325 MG Tab PO SCH; -EPINEPHrine 1 MG/ML 30 ML MDV IRR SCH; -Lidocaine 1%/Sod Bicarbonate in NS 8.4% 1 ML Syringe IDERM PRN; +Pregabalin 25 MG Cap PO SCH; +Scopolamine 1.5 MG Transdermal Patch TRDERM PRN; +Sodium Chloride 0.9% 10 ML Syringe FLUSH SCH; +oxyCODONE ER 10 MG TAB.ER PO SCH
[2023-02-24] MEDS ORDERED: EPINEPHrine 1 MG/ML SDV ONE (10:56)
[2023-02-24] MEDS ORDERED: Ropivacaine 0.5% 5 MG/ML 30 ML SDV ONE (10:56)
[2023-02-24] MEDS ORDERED: Midazolam 1 MG/ML 2 ML SDV ONE ×2 (11:01→13:17)
[2023-02-24] MEDS ORDERED: Propofol 200 MG/20 ML SDV ONE (11:01)
[2023-02-24] MEDS ORDERED: ceFAZolin 2 GM Vial ONE (11:01)
[2023-02-24] MEDS ORDERED: fentaNYL 100 MCG/2 ML SDV ONE (11:01)
[2023-02-24] MEDS ORDERED: Dexamethasone 4 MG/ML 5 ML MDV ONE (11:01)
[2023-02-24] MEDS ORDERED: Lactated Ringers 2,000 ML ONE (11:01)
[2023-02-24] MEDS ORDERED: Ketorolac 30 MG/ML SDV ONE (11:01)
[2023-02-24] MEDS ORDERED: Ondansetron 4 MG/2 ML SDV ONE (11:01)
[2023-02-24] MEDS ORDERED: Dexmedetomidine 200 MCG/2 ML SDV ONE (11:06)
[2023-02-24] MEDS ORDERED: Ketamine 500 mg/10 ML MDV ONE (11:07)
[2023-02-24] MEDS ORDERED: Phenylephrine 1% 10 MG/ML SDV IV PRN (13:30)
[2023-02-24] MEDS ORDERED: Midazolam 1 MG/ML 2 ML SDV IVPUSH PRN (13:30)
[2023-02-24] MEDS ORDERED: ePHEDrine 50 MG/ML SDV IVPUSH PRN (13:30)
[2023-02-24] MEDS ORDERED: diphenhydrAMINE 50 MG/ML SDV IVPUSH PRN (13:30)
[2023-02-24] MEDS ORDERED: HYDROmorphone 0.5 MG/0.5 ML Syringe IVPUSH PRN (13:30)
[2023-02-24] MEDS ORDERED: Albuterol 0.083% 2.5 MG/3 ML Neb Soln NEB PRN (13:30)
[2023-02-24] MEDS ORDERED: Ondansetron 4 MG/2 ML SDV IVPUSH PRN (13:30)
[2023-02-24] MEDS ORDERED: fentaNYL 100 MCG/2 ML SDV IVPUSH PRN (13:30)
[2023-02-24] MEDS ORDERED: Phenylephrine 1% 10 MG/ML SDV ONE (13:35)
[2023-02-24] MEDS: Morphine 8 MG, EPINEPHrine 0.3 MG, Cefuroxime 750 MG, Ketorolac 30 MG, Sodium Chloride ... PRN ×10 (13:52→14:20)
[2023-02-24] MEDS: Tranexamic Acid 1,000 MG/10 ML Vial ONE ×2 (13:52→14:29)
[2023-02-24] MEDS: Vancomycin 1 GM SDV ONE ×2 (13:52→14:29)
[2023-02-24] MEDS ORDERED: oxyCODONE 5 MG Tab PO ONE (17:02)
[2023-02-24 17:43] VITALS: BP 138/84; PULSE 82
== END 2023-02-24 17:25 | disposition home or self-care (01) ==
LOC: JD.SDS 10:28
PROVIDERS: ATTEND Orthopaedic Surgery
DX: M17.12 Unilateral primary osteoarthritis, left knee (principal); G89.29 Other chronic pain; I10 Essential (primary) hypertension; E78.2 Mixed hyperlipidemia; E83.110 Hereditary hemochromatosis; E66.9 Obesity, unspecified; Z79.899 Other long term (current) drug therapy
CPT/HCPCS: 0055T; 27447; 64447; 73560; 97116; 97161; A9270; C1713; C1776; J0171; J0690; J0697; J1100; J1885; J2250; J2270; J2370; J2405; J2704; J2795; J3010; J3370; J3490; J7030; J7120; 01402